=== PATIENT | female | born 1940 | race Caucasian/White ===

== ENCOUNTER 2020-09-02 23:48 | Emergency (ER) | payer OTHER ==
[~2020-09-02] VITALS: Ht 157.5 cm; Wt 68.0 kg
[~2020-09-02 23:48] MED LIST: DILTIAZEM ER120 M1 PO; LEVOTHYROXIN0.112 M1 PO; LOSARTAN POTASS50 MG PO; PREMARIN0.45 MG PO
[2020-09-02 23:52] VITALS: BP 128/74
== END 2020-09-03 00:35 | disposition home or self-care (01) ==
LOC: ER 23:48
DX: R04.0 Epistaxis (principal); I10 Essential (primary) hypertension; Z90.49 Acquired absence of other specified parts of digestive tract; Z79.899 Other long term (current) drug therapy